=== PATIENT | male | born 1980 | race Caucasian/White ===

== ENCOUNTER 2018-03-28 11:04 | Emergency (ER) | payer BC ==
[2018-03-28 11:26] VITALS: BP 127/76
[2018-03-28] MEDS ORDERED: predniSONE TAB* 20 MG PO ONE (12:14)
--- NOTE | 2018-03-28 12:16 | UC ---
Skin Complaint HPI - HPI Summary HPI Summary: The patient is a 37-year-old male that presents here with a severe sunburn of his lower extremities. The burn occurred yesterday. The burn chest affects the anterior portions of his legs from the thigh down to the tops of his feet. He took ibuprofen last night with minimal relief. He has no history of diabetes. - History of Current Complaint Chief Complaint: [facility] Time Seen by Provider: 03/28/18 11:49 Stated Complaint: SKIN COMP (SUNBURN) Hx Obtained From: Patient Onset/Duration: Gradual Onset Skin Exposure Onset/Duration: Hours Ago Onset Severity: Severe Current Severity: Severe Pain Intensity: 7 Pain Scale Used: 0-10 Numeric Location: Other - both legs Character: Redness, Painful Aggravating Factor(s): Touch Alleviating Factor(s): OTC Meds Associated Signs & Symptoms: Positive: Negative - Allergy/Home Medications Allergies/Adverse Reactions: Allergies Allergy/AdvReac Type Severity Reaction Status Date / Time No Known Allergies Allergy Verified 03/28/18 11:23 Home Medications: Home Medications Amphetamine MIXED SALTS TAB* [Adderall TAB*] 5 mg PO DAILY 03/28/18 [History Confirmed 03/28/18] Review of Systems Constitutional: Negative Skin: Negative Eyes: Negative ENT: Negative Respiratory: Negative Cardiovascular: Negative Gastrointestinal: Negative Genitourinary: Negative Motor: Negative Neurovascular: Negative Musculoskeletal: Negative Neurological: Negative Psychological: Negative Is Patient Immunocompromised?: No All Other Systems Reviewed And Are Negative: Yes PMH/Surg Hx/FS Hx/Imm Hx Previously Healthy: Yes - Surgical History Surgical History: Yes Surgery Procedure, Year, and Place: tonsillectomy. appendectomy. sleeve gastrectomy. right ankle reconstruction - Family History Known Family History: Positive: Hypertension - Social History Alcohol Use: Occasionally Substance Use Type: None Smoking Status (MU): Never Smoked Tobacco Physical Exam Triage Information Reviewed: Yes Appearance: Well-Appearing, No Pain Distress, Well-Nourished Vital Signs: Initial Vital Signs Temp 99.3 F 03/28/18 11:20 Pulse 87 03/28/18 11:20 Resp 16 03/28/18 11:20 BP 127/76 03/28/18 11:20 Pulse Ox 100 03/28/18 11:20 Vital Signs Reviewed: Yes Eyes: Positive: Conjunctiva Clear ENT: Positive: Hearing grossly normal. Negative: Nasal congestion, Nasal drainage, Trismus, Muffled voice, Hoarse voice Neck: Positive: Supple, Nontender, No Lymphadenopathy Respiratory: Positive: Lungs clear, Normal breath sounds, No respiratory distress, No accessory muscle use Cardiovascular: Positive: RRR, No Murmur Musculoskeletal: Positive: ROM Intact, No Edema Neurological: Positive: Alert Psychological Exam: Normal Skin Exam: Other - severe sunburn mid thigh to dorsum of feet. no blisters/ bullae Course/Dx - Diagnoses Provider Diagnoses: sunburn Discharge - Sign-Out/Discharge Documenting (check all that apply): Discharge/Admit/Transfer - Discharge Plan Condition: Stable Disposition: HOME Prescriptions: predniSONE [Prednisone 20 MG TAB] 60 mg PO DAILY #6 tab Patient Education Materials: Sunburn (ED) Referrals: No Primary Care Phys,NOPCP [Primary Care Provider] - Additional Instructions: recheck for new or worsening symptoms - Billing Disposition and Condition Condition: STABLE Disposition: Home
== END 2018-03-28 12:21 | disposition home or self-care (01) ==
LOC: UCCORT 11:04
DX: L55.9 Sunburn, unspecified (principal)
CPT/HCPCS: 99202; G0463; J7512

== ENCOUNTER 2019-02-07 17:28 | Emergency (ER) | payer BC ==
[2019-02-07 17:58] VITALS: BP 124/83
--- NOTE | 2019-02-07 18:06 | UC ---
Throat Pain/Nasal Wing HPI - HPI Summary HPI Summary: 38 -year-old male with an intermittent sore throat over the past 2 weeks. He states his son had a sore throat which resolved however the patient's has not. He denies any fever or he states that sometimes it's just dry and scratchy and other times he feels like his uvula is swollen and is trying to swallow something. - History of Current Complaint Chief Complaint: UCGeneralIllness Stated Complaint: ST Time Seen by Provider: 02/07/19 18:05 Hx Obtained From: Patient Onset/Duration: Gradual Onset Severity: Mild Pain Intensity: 3 Cough: None Associated Signs & Symptoms: Positive: Negative - Allergies/Home Medications Allergies/Adverse Reactions: Allergies Allergy/AdvReac Type Severity Reaction Status Date / Time No Known Allergies Allergy Verified 02/07/19 17:59 PMH/Surg Hx/FS Hx/Imm Hx Previously Healthy: Yes - Surgical History Surgical History: Yes Surgery Procedure, Year, and Place: tonsillectomy. appendectomy. sleeve gastrectomy. right ankle reconstruction - Family History Known Family History: Positive: Hypertension - Social History Alcohol Use: Occasionally Substance Use Type: None Smoking Status (MU): Never Smoked Tobacco Review of Systems All Other Systems Reviewed And Are Negative: Yes ENT: Positive: Sore Throat - Intermittent Is Patient Immunocompromised?: No Physical Exam Triage Information Reviewed: Yes Appearance: Well-Appearing, No Pain Distress, Well-Nourished Vital Signs: Initial Vital Signs Temp 99.6 F 02/07/19 17:55 Pulse 87 02/07/19 17:55 Resp 16 02/07/19 17:55 BP 124/83 02/07/19 17:55 Pulse Ox 100 02/07/19 17:55 Vital Signs Reviewed: Yes Eye Exam: Normal ENT: Positive: Normal ENT inspection, Hearing grossly normal, Pharynx normal, TMs normal, Uvula midline Neck exam: Normal Neck: Positive: Supple, Nontender, No Lymphadenopathy Respiratory: Positive: Lungs clear, Normal breath sounds, No respiratory distress, No accessory muscle use Cardiovascular: Positive: RRR, No Murmur, Pulses Normal, Brisk Capillary Refill Musculoskeletal Exam: Normal Neurological Exam: Normal Psychological Exam: Normal Skin Exam: Normal Throat Pain/Nasal Course/Dx - Course Course Of Treatment: Rapid strep test negative. The patient prefers to stay in [place] and see Dr. Ferreira. In the meantime he can do warm salt water gargles, throat lozenges and follow-up with Dr. Ferreira asked week for continued sore throats. - Differential Dx/Diagnosis Provider Diagnosis: Pharyngitis Discharge - Sign-Out/Discharge Documenting (check all that apply): Patient Departure All imaging exams completed and their final reports reviewed: No Studies - Discharge Plan Condition: Fair Disposition: HOME Patient Education Materials: Pharyngitis (ED) Referrals: Nas Ferreira MD [Medical Doctor] - No Primary Care Phys,NOPCP [Primary Care Provider] - Additional Instructions: Warm saltwater gargles, throat lozenges follow-up with an ear nose and throat doctor if continued sore throat into next week. - Billing Disposition and Condition Condition: FAIR Disposition: Home - Attestation Statements Provider Attestation: Per institutional requirements, I have reviewed the chart, however, I was not consulted specifically or made aware of this patient by the midlevel provider. I did not personally evaluate, interact with , or disposition this patient.
== END 2019-02-07 18:47 | disposition home or self-care (01) ==
LOC: UCCORT 17:28
DX: J02.9 Acute pharyngitis, unspecified (principal)
CPT/HCPCS: 87651; 99211; G0463